=== PATIENT | female | born 1995 | race Caucasian/White ===

== ENCOUNTER 2024-12-02 07:56 | Outpatient (CLI) | payer OTHER, SELFPAY ==
--- NOTE | 2024-12-02 08:15 | CRLHL7_ITS ---
For Patients: As a result of the Century Cures Act, medical imaging exams and procedure reports are released immediately into your electronic medical record. You may view this report before your referring provider. If you have questions, please contact your health care provider. INDICATION: First trimester dating and viability. TECHNIQUE: Ultrasound OB pelvis transabdominal and transvaginal. Real-time alvarez-scale imaging of the pelvis was performed. COMPARISON: None. FINDINGS: Intrauterine gestation: Single. heart activity (bpm): Regular, 176. [place]-rump length: 2.7 cm. Estimated ultrasound age: 9 weeks 4 day. WENDY by ultrasound: 07/03/2025. Yolk sac: Normal. Perigestational hemorrhage: None. Ovaries and adnexa: Unremarkable. Corpus luteal cyst is present on left side. Suspicious pelvic fluid collections: None. IMPRESSION: Single viable intrauterine with estimated gestational age of 9 weeks 4 days and WENDY 07/03/2025. Dictated by Xu Schaeffer MD @ 12/02/2024 11:46:48 AM (Electronically Signed)
== END 2024-12-02 07:57 | disposition home or self-care (01) ==
LOC: US 07:56
PROVIDERS: Visit Provider Advanced Practice Midwife
DX: Z34.91 Encounter for supervision of normal pregnancy, unspecified, first trimester (principal); Z3A.09 9 weeks gestation of pregnancy; O99.321 Drug use complicating pregnancy, first trimester; F12.91 Cannabis use, unspecified, in remission; Z12.4 Encounter for screening for malignant neoplasm of cervix
CPT/HCPCS: 76817

== ENCOUNTER 2024-12-02 09:24 | Outpatient (CLI) | payer OTHER, SELFPAY ==
[2024-12-02 14:51] LABS: Chlamydia DNA Amplified* NOT DETECTED (No Detected); GC DNA Amplified* NOT DETECTED (No Detected)
[2024-12-04 02:32] LABS: HPV Source Cervical
[2024-12-05 08:45] LABS: Pap Test Digital Imaging Done
== END 2024-12-02 09:25 | disposition home or self-care (01) ==
PROVIDERS: Visit Provider Advanced Practice Midwife
DX: O99.321 Drug use complicating pregnancy, first trimester (principal); F12.91 Cannabis use, unspecified, in remission; Z12.4 Encounter for screening for malignant neoplasm of cervix; Z3A.09 9 weeks gestation of pregnancy
CPT/HCPCS: 80306; 83020; 83021; 85660; 86592; 86703; 86704; 86706; 86762; 86787; 86803; 86850; 86900; 86901; 87086; 87340; 87491; 87591; 87624; 87625; 88141; 88142; 88175

== ENCOUNTER 2025-02-10 09:00 | Outpatient (CLI) | payer OTHER, SELFPAY ==
--- NOTE | 2025-02-10 09:15 | CRLHL7_ITS ---
For Patients: As a result of the Century Cures Act, medical imaging exams and procedure reports are released immediately into your electronic medical record. You may view this report before your referring provider. If you have questions, please contact your health care provider. OB ULTRASOUND SURVEY WENDY by LMP: 07/02/2025. GA: 19 w, 5 d. INDICATION: scan. TECHNIQUE: Real time grayscale imaging of the fetus was performed. Evaluate anatomy. Transabdominal imaging performed. position: Breech. Cervix: Visualized. Technique: Transabdominal. Length of closed cervix: 3.0 cm. Placenta/cord: Anterior. Technique: Transabdominal. Placenta tip to internal OS: 5.6 cm. Umbilical Cord: 3-vessel cord. Placenta insertion: Central. Amniotic Fluid: 4.9 cm SDP (greater than/equal to: 2- less than 8 cm). SURVEY: Observed Structures. Calvarium/Spine: Cerebellum: 1.9 cm, 19 w 5 d. Cisterna Magna: 5.3 mm. Nuchal Fold: 3.9 mm. Lateral Ventricle: 6.4 mm. CSP: Yes. Midline Falx: Yes. Choroid Plexus: Yes. Spine: Yes. Abdomen: Stomach: Yes. Abd Cord Insertion: Yes. Urinary Bladder: Yes. Kidneys: Yes. Diaphragm: Yes. Face: Nose/lips: See impression. Orbital view: Yes. Profile: See impression. Limbs: Upper Extremities: Yes. Lower Extremities: Yes. Hands: Yes. Feet: Yes. Vascular: 4-Chamber Heart: See impression. LVOT: See impression. RVOT: See impression. 3VV: See impression. 3VTV: See impression. BPD: 4.6 cm. 19 w, 6 d, 55.9%. HC: 16.7 cm. 19 w, 3 d, 27.3%. AC: 14.9 cm. 20 w, 1 d, 59.7%. FL: 2.9 cm. 18 w, 6 d, 14.6%. FL/AC ratio: 19.3%. HC/AC ratio: 1.1. heart rate: 149 bpm. age by this US: 19 w, 4 d. WENDY by this US: 07/03/2025. EFW: 297.8g. Weight: 0 lbs., 11 oz. Percentile by WENDY: 34.8%. IMPRESSION: 1. Incomplete visualization of the profile, nose, lips, and heart. Remainder of the anatomic survey normal. Short-term follow-up recommended. 2. Concordance of clinical and sonographic dating. Jimmie Norris M.D. Diagnostic Radiologist [email or web address]/Dictated by: Jmimie Norris MD @ 02/10/2025 10:21:00 AM (Electronically Signed)
== END 2025-02-10 09:01 | disposition home or self-care (01) ==
LOC: US 09:01
PROVIDERS: Visit Provider Physician Assistant
DX: Z36.2 Encounter for other antenatal screening follow-up (principal); Z3A.19 19 weeks gestation of pregnancy
CPT/HCPCS: 76805

== ENCOUNTER 2025-02-24 08:01 | Outpatient (CLI) | payer OTHER, SELFPAY ==
--- NOTE | 2025-02-24 08:15 | CRLHL7_ITS ---
For Patients: As a result of the Century Cures Act, medical imaging exams and procedure reports are released immediately into your electronic medical record. You may view this report before your referring provider. If you have questions, please contact your health care provider. OB ULTRASOUND FOLLOW-UP CLINICAL HISTORY: survey follow-up for missed views (profile, nose/lips, all of heart). TECHNIQUE: Real time alvarez scale imaging of the fetus was performed. Transabdominal imaging performed. COMPARISON: 02/10/2025, 12/02/2024. FINDINGS: WENDY by LMP: 07/02/2025. GA: 21 weeks 5 days. Gestation: Single. Cervix: Not visualized. Positioning: Vertex. Amniotic Fluid: 4.2 cm SDP. Placenta: Technique: TA. Placenta Position: Anterior. Dopplers: Heart Rate: 149 bpm. IMPRESSION: Normal profile, nose, lips, 3 vessel trachea view, 3 vessel view, RVOT, LVOT and 4 chamber heart. Jimmie Norris M.D. Diagnostic Radiologist [email or web address] Transcribed: 11:40 am DW/Dictated by: Jimmie Norris MD @ 02/24/2025 9:35:00 AM (Electronically Signed)
== END 2025-02-24 08:02 | disposition home or self-care (01) ==
LOC: US 08:02
PROVIDERS: Visit Provider Obstetrics & Gynecology
DX: Z36.2 Encounter for other antenatal screening follow-up (principal); Z3A.21 21 weeks gestation of pregnancy
CPT/HCPCS: 76816